=== PATIENT | male | born 1940 | race Caucasian/White ===

== ENCOUNTER 2018-11-10 22:45 | Emergency (ER) | payer MEDICARE ==
[~2018-11-10] VITALS: Ht 170.2 cm; Wt 90.7 kg
--- NOTE | 2018-11-10 23:11 | PHYS DOC ---
Adult General Chief Complaint Chief Complaint: MECHANICAL FALL HPI HPI Patient is a 77 year old male presents to the ED complaining of trip and fall just prior to arrival. Patient states that he drank 5 hams beers and some old [place] liquor. States he tripped over his own feet and fell forward landing on the concrete. States he skinned up his nose and injured his right shoulder. Describes the pain as sharp. Rates the pain as 6 out of 10. Patient able to ambulate without assistance. Denies LOC, vision changes, nausea/vomiting, dizziness, weakness, symptoms prior to fall, use of blood thinners, chest pain or shortness of breath. at bedside. (ISABELLE LORD) Review of Systems Review of Systems Constitutional: Denies fever or chills [] Eyes: Denies change in visual acuity, redness, or eye pain [] HENT: Complains of nose abrasion. Denies nasal congestion or sore throat [] Respiratory: Denies cough or shortness of breath [] Cardiovascular: No additional information not addressed in HPI [] GI: Denies abdominal pain, nausea, vomiting, bloody stools or diarrhea [] : Denies dysuria or hematuria [] Musculoskeletal: Complains of shoulder injury. Denies back pain. Integument: Denies rash or skin lesions [] Neurologic: Denies headache, focal weakness or sensory changes [] All other systems were reviewed and found to be within normal limits, except as documented in this note. (ISABELLE LORD) Current Medications Current Medications Current Medications Medications (Trade) Dose Ordered Sig/Genny Start Time Stop Time Status Last Admin Dose Admin Diphtheria/ Tetanus/Acell Pertussis (Boostrix) 0.5 ml ONCE ONCE 11/10/18 23:30 11/10/18 23:31 DC 11/10/18 23:55 0.5 ML Propofol (Diprivan) 200 mg 1X ONCE 11/11/18 01:00 11/11/18 01:01 DC (GLADYS JEFFRIES MD) Allergies Allergies Allergies Coded Allergies Type Severity Reaction Last Updated Verified No Known Drug Allergies 11/11/18 No (GLADYS JEFFRIES MD) Physical Exam Physical Exam Constitutional: Well developed, no acute distress.[] HENT: Normocephalic, atraumatic, bilateral external ears normal, oropharynx moist, no oral exudates, 3 cm anterior nasal bone abrasion. no active bleeding. no septal hematoma. [] Eyes: PERRLA, EOMI, conjunctiva normal, no discharge. [] Neck: Normal range of motion, no tenderness, supple, no stridor. [] Cardiovascular:Heart rate regular rhythm, no murmur [] Lungs & Thorax: Bilateral breath sounds clear to auscultation [] Abdomen: Bowel sounds normal, soft, no tenderness, no masses, no pulsatile masses. [] Skin: Warm, dry, no erythema, no rash. [] Back: No tenderness, no CVA tenderness. [] Extremities: Right anterior shoulder deformity/dislocation. mild tenderness, no cyanosis, no clubbing, no edema. NV intact. 2+ distal pulses. [] Neurologic: Alert and oriented X 3, normal motor function, normal sensory function, no focal deficits noted. [] Psychologic: Affect normal, judgement normal, mood normal. [] (ISABELLE LORD) Current Patient Data Vital Signs Vital Signs Date Time Temp Pulse Resp B/P (MAP) Pulse Ox O2 Delivery O2 Flow Rate FiO2 11/11/18 00:10 97 15 92 11/10/18 22:50 98.9 160/75 (103) Room Air 98.9 (GLADYS JEFFRIES MD) EKG EKG [] (ISABELLE LORD) Radiology/Procedures Radiology/Procedures [] (ISABELLE LORD) Impressions: IMPRESSION: Right shoulder dislocation. Atelectasis of the right middle and lower lobes associated with elevation of the right diaphragm versus a moderate subpulmonic right pleural effusion. Right shoulder AP and scapular Y x-rays 2 views HISTORY: Right shoulder pain after a fall. FINDINGS: There is an anterior subcoracoid humeral head dislocation. No obvious fracture evident. IMPRESSION: Anterior humeral head dislocation. Electronically signed by: Johnathan Robledo MD (11/11/2018 12:46 AM) [facility] DICTATED and SIGNED BY: JOHNATHAN ROBLEDO MD DATE: 11/11/18 0046 IMPRESSION: No acute intracranial CT abnormality. Subcentimeter in thickness frontal scalp hematoma. 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 Dental disease with dental caries and periapical lucencies of maxillary teeth and dental caries mandible teeth. Age-indeterminate mild buckled nasal bone fracture deformities. Partial opacification ethmoid sinuses. Small cysts or polyps maxillary sinuses. Mandible and maxilla are intact. Bony orbits intact. Subcentimeter thickness frontal scalp hematoma. No orbital edema or hematoma. IMPRESSION: Nasal bone fractures. Orbits intact. Mandible and maxilla intact. CT cervical spine findings: Craniocervical junction intact. Cervical vertebral body height and alignment intact. There is patient motion artifact at C5-C6 which decreases sensitivity to characterize an injury at this level, if there is clinical suspicion of injury at this level then repeat imaging would be advised. No fracture of the cervical spine evident. Multilevel cervical disc height loss and disc osteophytes and uncovertebral and facet spurs with spinal canal and neural foraminal stenoses. Lung apices and paraspinal tissues are unremarkable. IMPRESSION: No acute osseous injury evident. There is motion artifact at C5-C6 as described above. Cervical disc disease. (GLADYS JEFFRIES MD) Course & Med Decision Making Course & Med Decision Making Pertinent Labs and Imaging studies reviewed. (See chart for details) Attending physician, Dr. Jeffries assumes care of patient at 12:45am. (ISABELLE LORD) Course & Med Decision Making s/o from isabelle Procedure note: shoulder dislocation reduction with moderate sedation Informed consent was obtained patient was able to sign himself this was the right side confirm this with the patient 2 identifiers were obtained. Time out was performed we gave a total of 80 mg of IV propofol for conscious moderate sedation patient tolerated well with no desaturations end-tidal CO2 and cardiac monitoring throughout the procedure. Total procedure time less than 15 minutes. Postreduction x-ray confirmed reduction of the right shoulder he was placed in a shoulder immobilizer and he remained neurovascularly intact following the procedure Noted the C-spine CT read I went back and reexamined his neck there was no tenderness he said his neck felt better now that his shoulder was in Noted the nasal bone. He says he has had broken nose before he doesn't think it' s broken. Given ENT follow-up should the need arise should he have any deformity in the next 3-5 days he understands also understand short course of pain medication do not drink alcohol while on this don't drive while on this in addition antibiotics were given for the nasal bone injury possibly with the overlying nonsuturable abrasion/laceration (GLADYS JEFFRIES MD) Dragon Disclaimer Dragon Disclaimer This electronic medical record was generated, in whole or in part, using a voice recognition dictation system. (ISABELLE LORD) Departure Departure Impression: Primary Impression: Shoulder dislocation Additional Impressions: Nose abrasion Head injury Disposition: HOME, SELF-CARE Condition: IMPROVED Scripts Cephalexin (CEPHALEXIN) 500 Mg Tablet 1 TAB PO QID, #28 TAB Prov: GLADYS JEFFRIES MD 11/11/18 Hydrocodone/Apap 5-325 (NORCO 5-325 TABLET) 1 Each Tablet 1-2 EACH PO PRN Q6HRS PRN for PAIN, #8 as needed for pain Prov: GLADYS JEFFRIES MD 11/11/18 Problem Qualifiers ISABELLE LORD Nov 10, 2018 23:11 GLADYS JEFFRIES MD Nov 11, 2018 02:33
[2018-11-10] MEDS ORDERED: DIPHTH,PERTUSS(ACELL),TET TOX 0.5 ML DISP.SYRIN. VAX IM ONE (23:30)
[2018-11-11 00:10] VITALS: BP 157/96
--- NOTE | 2018-11-11 00:47 | RAD ---
CT head without contrast. CT cervical spine without contrast. Maxillofacial CT without contrast. HISTORY: Fall, head pain, neck pain. TECHNIQUE: Noncontrast CT imaging of the head, facial bones and cervical spine with multiplanar reconstructions. CT head findings: No intracranial hemorrhage, mass, hydrocephalus, extra-axial fluid collections or infarction. Mild subcentimeter thickness frontal scalp hematoma. Mastoids, orbits and bones are unremarkable. IMPRESSION: No acute intracranial CT abnormality. Subcentimeter in thickness frontal scalp hematoma. 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 Dental disease with dental caries and periapical lucencies of maxillary teeth and dental caries mandible teeth. Age-indeterminate mild buckled nasal bone fracture deformities. Partial opacification ethmoid sinuses. Small cysts or polyps maxillary sinuses. Mandible and maxilla are intact. Bony orbits intact. Subcentimeter thickness frontal scalp hematoma. No orbital edema or hematoma. IMPRESSION: Nasal bone fractures. Orbits intact. Mandible and maxilla intact. CT cervical spine findings: Craniocervical junction intact. Cervical vertebral body height and alignment intact. There is patient motion artifact at C5-C6 which decreases sensitivity to characterize an injury at this level, if there is clinical suspicion of injury at this level then repeat imaging would be advised. No fracture of the cervical spine evident. Multilevel cervical disc height loss and disc osteophytes and uncovertebral and facet spurs with spinal canal and neural foraminal stenoses. Lung apices and paraspinal tissues are unremarkable. IMPRESSION: No acute osseous injury evident. There is motion artifact at C5-C6 as described above. Cervical disc disease. Exposure: One or more of the following individualized dose reduction techniques were utilized for this examination: 1. Automated exposure control 2. Adjustment of the mA and/or kV according to patient size 3. Use of iterative reconstruction technique Electronically signed by: Johnson Robledo MD (11/11/2018 12:44 AM) [facility]
--- NOTE | 2018-11-11 00:49 | RAD ---
AP chest x-ray HISTORY: Right shoulder pain after a fall. FINDINGS: Heart size normal. Mediastinum is unremarkable. Left lung is clear. There is elevation of the right diaphragm versus a subpulmonic moderate right pleural effusion. No pneumothorax. There is atelectasis of the right middle and lower lobes. Right shoulder dislocation is noted. IMPRESSION: Right shoulder dislocation. Atelectasis of the right middle and lower lobes associated with elevation of the right diaphragm versus a moderate subpulmonic right pleural effusion. Right shoulder AP and scapular Y x-rays 2 views HISTORY: Right shoulder pain after a fall. FINDINGS: There is an anterior subcoracoid humeral head dislocation. No obvious fracture evident. IMPRESSION: Anterior humeral head dislocation. Electronically signed by: Johnson Robledo MD (11/11/2018 12:46 AM) [facility]
[2018-11-11] MEDS ORDERED: PROPOFOL 10 MG/ML (20ML) VIAL. IV ONE (01:00)
[2018-11-11] MEDS ORDERED: CEPH500T PO (01:36)
[2018-11-11] MEDS ORDERED: HYDR-3164 PO (01:36)
--- NOTE | 2018-11-11 02:33 | PHYS DOC ---
MODERATE SEDATION ASSESSMENT RISKS/ALTERNATIVES Risks/Alternatives Risks and alternatives of this type of sedation and procedure discussed with: RISK/ALTERNATIVES: Patient H & P ON CHART H & P H & P on chart and reviewed for co-morbid conditions and appropriate labs. H&P ON CHART: Yes STATUS PREG STATUS ASSESSED: N/A MEDS/ALLERGIES REVIEWED Meds/Allergies Reviewed Medications and Allergies including time and route of recently administered narcotics and sedatives. MEDS/ALLERGIES REVIEWED: Yes ASA RATING ASA RATING: II AIRWAY ASSESSMENT Airway Assessment Airway patency, oral function limitations, presence of caps, crowns, dentures, partials, and ability to extend neck assessed. AIRWAY ASSESSMENT: Yes MALLAMPATI SCORE MALLAMPATI SCORE: II PRE-SEDATION ASSESSMENT PRE-SEDATION ASSESSMENT: Yes GLADYS CAGLE MD Nov 11, 2018 02:33
--- NOTE | 2018-11-11 08:24 | RAD ---
Right shoulder, 2 views, 11/11/2018: HISTORY: Post reduction evaluation Comparison is made to yesterday's study. The right shoulder dislocation has been reduced. There are underlying degenerative changes at the right shoulder with narrowing of the subacromial space suggesting rotator cuff degeneration and/or chronic tear. No recent fracture is identified. IMPRESSION: Satisfactory reduction of the right shoulder dislocation. Electronically signed by: Mario Baldwin MD (11/11/2018 8:21 AM) [facility]
== END 2018-11-11 02:15 | disposition home or self-care (01) ==
LOC: ER 23:42
DX: S43.014A Anterior dislocation of right humerus, initial encounter (principal); S00.31XA Abrasion of nose, initial encounter; S09.90XA Unspecified injury of head, initial encounter; W01.0XXA Fall on same level from slipping, tripping and stumbling without subsequent striking against object, initial encounter; Y93.89 Activity, other specified; Y92.89 Other specified places as the place of occurrence of the external cause; Y99.8 Other external cause status
CPT/HCPCS: 23650; 70450; 70486; 71045; 72125; 73030; 90471; 90715; 99152; 99285-25

== ENCOUNTER → 2018-12-06 | Outpatient (CLI) | payer MEDICARE ==
[2018-11-11 00:10] VITALS: BP 157/96
[~2018-12-06] MED LIST: CEPH500T PO; HYDR-3164 PO
--- NOTE | 2018-12-06 12:44 | KCIC ---
MRI right shoulder without contrast dated 12/06/2018. No comparison available. Clinical indication: Pain after fall.. History of prior dislocation. TECHNIQUE: Routine multiplanar multi sequence MR imaging performed. FINDINGS: There is some edema within the subcortical marrow of the posterior lateral superior humeral head with small wedge-shaped defect, consistent with Hill-Sachs impaction fracture from prior dislocation. Marrow signal is otherwise homogeneous. Intermediate T2 signal throughout the supraspinatus and infraspinatus portions of the rotator cuff. There is articular surface partial tearing of the supraspinatus-infraspinatus junction that appears to extend 60-70% thickness. There is minimal retraction of undersurface fibers to the 12:00 position. No definite full-thickness tear. The subscapularis is of intermediate signal but otherwise intact. Moderate hypertrophic change of the AC joint. There is an unossified os acromiale with degenerative change of the synchondrosis. Long head biceps tendon is poorly visualized proximally. Extra articular portion is also small and poorly seen. There is abnormal signal of the anterior inferior labrum is blunted morphology. Small linear defect within the labral substance. No anterior periosteal sleeve avulsion is apparent. There is thinning of the glenoid articular cartilage without definite cartilage defect. Minimal edema within the subcortical marrow of the anterior inferior glenoid. No glenoid fracture line. Suprascapular and spinoglenoid notches are clear. No significant muscle edema. There is diffuse muscle atrophy. IMPRESSION: 1. No evidence of prior anterior dislocation with small Hill-Sachs impaction fracture of the superior posterior humeral head. 2. Small [place] tear of the anterior inferior labrum. No apparent glenoid fracture line or glenoid articular cartilage defect. 3. Moderate rotator cuff tendinopathy with moderate grade articular surface partial tearing of the central supraspinatus footplate. 4. 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 5. Poor visualization of the proximal long head biceps tendon which could be ruptured or subluxed medially into the joint. Electronically signed by: Clif Ng MD (12/06/2018 12:41 PM) [facility]
== END | disposition home or self-care (01) ==
LOC: KCIC MRI 11:23
PROVIDERS: ATTEND Orthopaedic Surgery Sports Medicine
DX: S46.011A Strain of muscle(s) and tendon(s) of the rotator cuff of right shoulder, initial encounter (principal); M19.011 Primary osteoarthritis, right shoulder; M89.311 Hypertrophy of bone, right shoulder; W19.XXXA Unspecified fall, initial encounter; Y93.89 Activity, other specified; Y92.89 Other specified places as the place of occurrence of the external cause; Y99.8 Other external cause status
CPT/HCPCS: 73221

== ENCOUNTER → 2019-03-18 | Outpatient (CLI) | payer MEDICARE ==
[~2019-03-18] MED LIST changes: +BUPIVACAINE MPF 0.5% 10 ML VIAL for KCIC. IM ONE; +IOHEXOL 300 MG/ML 50 ML VIAL. INT ART ONE; +LIDOCAINE 1% Multi-Dose 20 ML VIAL. ID ONE; +methylPREDNISolone ACETATE 40 MG/ML VIAL. INT ART ONE
--- NOTE | 2019-03-18 15:30 | KCIC ---
PROCEDURE: Right hip steroid injection under fluoroscopic guidance INDICATION: Chronic right hip pain. CONTRAST: 3 cc Omnipaque 300 FINDINGS: The risks, benefits and alternatives to the procedure were discussed with the patient. A timeout was performed to confirm the patient's identity and laterality of the injection. Utilizing sterile technique, fluoroscopic guidance and local anesthesia with 1% lidocaine, the right hip was accessed utilizing a 22-gauge, 3.5" spinal needle. A small amount contrast was used to confirm the intra-articular location of the needle tip. Subsequently, a mixture containing 3 cc bupivacaine and 80 mg (2 cc) Depo-Medrol was injected. There were no immediate complications. Fluoroscopy time: 35 seconds Number of images obtained: 1 Impression: Technically successful right hip steroid injection under fluoroscopic guidance. Electronically signed by: MARJ AMARO MD (03/18/2019 3:27 PM) [id number]
== END | disposition home or self-care (01) ==
LOC: KCIC 13:37
PROVIDERS: ATTEND Orthopaedic Surgery Sports Medicine
DX: M25.551 Pain in right hip (principal); G89.29 Other chronic pain
CPT/HCPCS: 20610; 77002; J1030; Q9967